=== PATIENT | female | born 1975 | race African-American/Black ===

== ENCOUNTER → 2016-11-29 | Day surgery (SDC) | payer BC ==
[~2016-11-29] MED LIST: LACTATED RINGER'S 1000 ML INJ 1,000 ML ONE; PROPOFOL 200 MG/20 ML AMP IV ONE
--- NOTE | 2016-11-29 07:57 | GIPROC ---
[facility] [address] [facility], [address] EGD PROCEDURE REPORT EXAM DATE: 11/29/2016 PATIENT NAME: Heidy Avilez MR #: [id number] BIRTHDATE: 1975 ATTENDING: Donnie Rangel MD ORDER #: [id number] [employer] OPERATOR: none STATUS: outpatient INDICATIONS: The patient is a 41 yr old female here for an EGD due to history of GERD and regurgitation PROCEDURE PERFORMED: EGD w/ biopsy MEDICATIONS: None and Per Anesthesia. TOPICAL ANESTHETIC: none CONSENT: The patient understands the risks and benefits of the procedure and understands that these risks include, but are not limited to: sedation, allergic reaction, infection, perforation and/or bleeding. Alternative means of evaluation and treatment include, among others: physical exam, x-rays, and/or surgical intervention. The patient elects to proceed with this endoscopic procedure. medical equipment was checked for proper function. Hand hygiene and appropriate measures for infection prevention was taken. After the risks, benefits and alternatives of the procedure were thoroughly explained, Informed consent was verified, confirmed and timeout was successfully executed by the treatment team. The patient was anesthetized and the EG-[id number] ([id number]) endoscope was introduced through the mouth and advanced to the second portion of the duodenum. Retroflexed views revealed no abnormalities. minimal bile staining noted. Antrum was biopsied for h.Pylori. The gastroscope was then slowly withdrawn and removed. Minimal bile reflux. The endoscopy was otherwise normal. ADVERSE EVENTS: There were no complications. IMPRESSIONS: 1. Minimal bile reflux 2. Normal endoscopy otherwise 3. Retroflexed views revealed no abnormalities RECOMMENDATIONS: Await biopsy results. Biopsy results will not be ready for 7-10 days. If you don't hear from us in two weeks, call our office for biopsy results. PATIENT CONDITION: fair DISPOSITION: Home REPEAT EXAM: NONE Donnie Rangel MD eSigned: Donnie Rangel MD 11/29/2016 7:56 AM cc: Tee Rodney M.D.
== END | disposition home or self-care (01) ==
LOC: ESDC 06:18
PROVIDERS: ATTEND Surgery
DX: K21.9 Gastro-esophageal reflux disease without esophagitis (principal); R11.10 Vomiting, unspecified; K29.50 Unspecified chronic gastritis without bleeding
CPT/HCPCS: 00740; 43239; 88305; 88312; J3010; J7120